=== PATIENT | male | born 1965 | race Hispanic/Latino ===

== ENCOUNTER 2021-11-05 09:13 | Emergency (ER) | payer OTHER, SELFPAY ==
[2021-11-05] MEDS ORDERED: Ketorolac Tromethamine 30 MG/ML VIAL ONE (11:15)
[2021-11-05] MEDS ORDERED: Ibuprofen 800 MG TAB ONE (11:31)
[2021-11-05] MEDS ORDERED: Ibuprofen 200 MG TAB ONE (11:32)
== END 2021-11-05 12:02 | disposition home or self-care (01) ==
LOC: ERS 09:13
DX: S70.12XA Contusion of left thigh, initial encounter (principal); M25.551 Pain in right hip; I10 Essential (primary) hypertension; F17.210 Nicotine dependence, cigarettes, uncomplicated; Z79.899 Other long term (current) drug therapy; W01.0XXA Fall on same level from slipping, tripping and stumbling without subsequent striking against object, initial encounter; Y99.0 Civilian activity done for income or pay
CPT/HCPCS: 72170; J1885

== ENCOUNTER 2025-03-20 11:33 | Emergency (ER) | payer BC, SELFPAY ==
[2025-03-20 12:18] LABS: #Basophils 0.07 10x3/uL (0.0-0.2); #Eosinophils 0.09 10x3/uL (0.0-0.7); #Monocytes 0.67 10x3/uL (0.11-0.59); #Neutrophils 7.12 10x3/uL (1.40-6.50); %Basophils 0.7 % (0.0-1.0); %Eosinophils 0.9 % (0.0-10.0); %Lymphocytes 15.8 % (21.0-51.0); %Monocytes 7.1 % (0.0-10.0); %Neutrophils 75.2 % (42.0-75.0); Hematocrit 41.8 % (42.0-52.0); Hemoglobin 14.0 g/dL (14.0-18.0); Mean Corpuscular Hemoglobin 28.8 pg (27.0-31.0); Mean Corpuscular Volume 86.0 fL (78.0-98.0); Platelet Count 257 10x3/uL (130-400); Red Blood Cell (RBC) Count 4.86 mill/uL (4.70-6.10); White Blood Cell (WBC) Count 9.48 10x3/uL (4.8-10.8)
[2025-03-20 12:35] LABS: ALT (SGPT) 11 U/L (Less than 45); AST (SGOT) 20 U/L (11-34); Albumin 3.9 g/dL (3.1-4.5); Alkaline Phosphatase 61 U/L (40-110); Anion Gap 14 mmol/L (10-20); BUN (Urea Nitrogen) 14 mg/dL (8.4-25.7); Bilirubin, Total 0.6 mg/dL (0.3-1.2); Calc. Creatinine Clearance 0 mL/min (70-130); Calcium 8.7 mg/dL (7.8-10.44); Carbon Dioxide 23 mmol/L (22-29); Chloride 103 mmol/L (98-107); Globulin 3.3 g/dL (2.4-3.5); Glucose 102 mg/dL (70-105); Potassium 4.0 mmol/L (3.5-5.1); Sodium 136 mmol/L (136-145)
== END 2025-03-20 14:37 | disposition home or self-care (01) ==
LOC: ERS 11:33
DX: R55 Syncope and collapse (principal); S01.21XA Laceration without foreign body of nose, initial encounter; I10 Essential (primary) hypertension; F17.210 Nicotine dependence, cigarettes, uncomplicated; W22.8XXA Striking against or struck by other objects, initial encounter
CPT/HCPCS: 36415; 80053; 83880; 84484; 85025; 93005; 96374